=== PATIENT | female | born 1980 | race African-American/Black ===

== ENCOUNTER 2017-03-07 20:11 | Emergency (ER) | payer OTHER ==
[~2017-03-07] VITALS: Ht 180.3 cm; Wt 99.8 kg
[2017-03-07 20:48] LABS: INFLUENZA A NEG (NEG); INFLUENZA B NEG (NEG)
== END 2017-03-07 21:30 | disposition home or self-care (01) ==
LOC: CED 20:11
DX: J02.0 Streptococcal pharyngitis (principal); F17.200 Nicotine dependence, unspecified, uncomplicated
CPT/HCPCS: 87804; 87880; 96372; 99283; J0561